=== PATIENT | female | born 1995 | race Caucasian/White ===

== ENCOUNTER 2018-07-16 15:07 | Emergency (ER) | payer OTHER, SELFPAY ==
[2018-07-16 15:48] VITALS: BP 128/81; PULSE 98; RESP 16; TEMP 37.6; O2SAT 100
--- NOTE | 2018-07-17 10:22 | ED.HA ---
HPI - Headache General Chief Complaint: Headache Stated Complaint: sysmtoms after removal of birthcontrol Related Data Allergies Allergy/AdvReac Type Severity Reaction Status Date / Time No Known Drug Allergies Allergy Verified 07/16/18 15:51 PFS Social History Smoking Status: Never smoker Social History Smoking Status: Never smoker Exam Initial Vital Signs Initial Vital Signs: Vital Signs Temperature 99.6 F 07/16/18 15:48 Pulse Rate 98 H 07/16/18 15:48 Respiratory Rate 16 07/16/18 15:48 Blood Pressure 128/81 07/16/18 15:48 Pulse Oximetry 100 07/16/18 15:48 Course Course Narrative: Patient left without being seen. Discharge Plan Departure Patient Disposition: Left Without Being Seen Clinical Impression: Patient left without being seen Discharge Date/Time: 07/16/18 19:00 Interventions: ED Discharge Assessment Last Done: 07/16/18 19:50 Stand Alone Forms: Against Medical Advice
== END 2018-07-16 19:00 | disposition left against medical advice (07) ==
PROVIDERS: Emergency Provider Emergency Medicine
DX: Z53.21 Procedure and treatment not carried out due to patient leaving prior to being seen by health care provider (principal)
CPT/HCPCS: 99282